=== PATIENT | female | born 1980 | race African-American/Black ===

== ENCOUNTER 2021-04-18 12:51 | Emergency (ER) | payer MEDICAID, OTHER, SELFPAY ==
[2021-04-18] MEDS ORDERED: Fluorescein Opthalmic Strip ONE (13:26)
[2021-04-18] MEDS ORDERED: Proparacaine 0.5% Opth 15 ML BOT ONE (13:26)
== END 2021-04-18 15:15 | disposition home or self-care (01) ==
LOC: ERS 12:51
DX: H10.9 Unspecified conjunctivitis (principal); L29.9 Pruritus, unspecified; I10 Essential (primary) hypertension; F17.210 Nicotine dependence, cigarettes, uncomplicated
CPT/HCPCS: 99283

== ENCOUNTER 2021-10-19 12:05 | Day surgery (SDC) | payer OTHER ==
[~2021-10-19 12:05] MED LIST: Acetaminophen 500 MG TAB PO PRN; Acetaminophen 500 MG TAB PO SCH; Ferumoxytol (ERSD) 510 MG in Sodium Chloride 0.9% 150 ML IVPB SCH; Ferumoxytol (NON ERSD) 510 MG in Sodium Chloride 0.9% 100 ML IVPB SCH
[2021-10-19 12:48] VITALS: BP 110/70; TEMP 98.1
[2021-10-19] MEDS ORDERED: Acetaminophen 500 MG TAB ONE ×2 (12:54)
== END 2021-10-19 14:02 | disposition home or self-care (01) ==
LOC: ONC/OP 12:05
PROVIDERS: ATTEND Family Medicine
DX: K90.89 Other intestinal malabsorption (principal); Z88.8 Allergy status to other drugs, medicaments and biological substances
CPT/HCPCS: 96365; J3490; Q0139